=== PATIENT | male | born 1965 | race Caucasian/White ===

== ENCOUNTER → 2017-04-14 | Outpatient (CLI) | payer BC ==
[~2017-04-14] MED LIST: LISI-787 PO
[2017-04-14 10:02] LABS: BLOOD UREA NITROGEN 11 mg/dl (7-18); BUN/CREATININE RATIO 11.2 (10-20); CALCIUM 9.6 mg/dl (8.5-10.1); CARBON DIOXIDE 28 mmol/L (21-32); CHLORIDE 107 mmol/L (98-107); GLUCOSE 105 mg/dl (70-99); POTASSIUM 4.5 mmol/L (3.5-5.1); SODIUM 141 mmol/L (136-145)
[2017-04-14 10:05] LABS: CHOLESTEROL 187 mg/dl (0-200); CHOLESTEROL/HDL RATIO 5.2; HDL CHOLESTEROL 36 mg/dl; LDL CHOLESTEROL CALCULATED 111 mg/dl; TRIGLYCERIDES 199 mg/dl (0-150); VERY LOW DENSITY LIPOPROT CALC 40 mg/dl
== END | disposition home or self-care (01) ==
LOC: C.LAB 08:21
PROVIDERS: ATTEND Family Medicine
DX: Z11.59 Encounter for screening for other viral diseases (principal); I10 Essential (primary) hypertension; R73.01 Impaired fasting glucose; E78.5 Hyperlipidemia, unspecified; M25.572 Pain in left ankle and joints of left foot

== ENCOUNTER 2017-09-22 13:21 | Emergency (ER) | payer BC ==
[~2017-09-22] VITALS: Ht 175.3 cm; Wt 81.4 kg
[2017-09-22 13:39] VITALS: TEMP 36.9; Ht 175.3 cm; Wt 81.4 kg
[2017-09-22] MEDS ORDERED: FAMOTIDINE 20 MG TAB PO STA (14:05)
[2017-09-22] MEDS ORDERED: SUCRALFATE 1 GM TAB PO STA (14:05)
[2017-09-22] MEDS ORDERED: GI COCKTAIL PO STA (14:05)
--- NOTE | 2017-09-22 14:09 | EMERGENCY ROOM VISIT NOTE ---
History Report prepared by Winifred: Hudson Ochoa Under the Supervision of: Dr. Regan Velazquez M.D. First contact with patient: 13:56 Chief Complaint: BACK PAIN Stated Complaint: NOSE BLEED, BACK PAIN, LIGHTHEADEDNESS History of Present Illness The patient is a 52 year old male who presents to the Emergency Room with complaints of constant back pain starting today. The patient states that this morning he was feeling light headed and anxious this morning, and he states that he has been having intermittent blood while blowing his nose since August. He reports that yesterday he was shoveling snow, and he states that the pain is worse with moving. He is currently on lisinopril for HTN. The patient states that he has numbness and tingling in his hands at night, though he does not have this with the light headedness. Source of History: patient Onset: this morning Position: back Timing: constant Modifying Factors (Worsening): movement Associated Symptoms: + numbness Note: Associated symptoms: light headed, anxious, blood while blowing his nose Review of Systems See HPI for pertinent positives & negatives. A total of 10 systems reviewed and were otherwise negative. Past Medical & Surgical Medical Problems: (1) HTN (hypertension) Family History Diabetes mellitus Heart disease Hypertension Social History Smoking Status: Former Smoker Marital Status: Housing Status: lives with family Occupation Status: employed Current/Historical Medications Scheduled Famotidine (Pepcid), 40 MG PO HS Lisinopril (Zestril), 20 MG PO DAILY Multivitamin (Multivitamin), 1 TAB PO DAILY Allergies Coded Allergies: No Known Allergies (Unverified , 09/25/10) Physical Exam Vital Signs Date Time Temp Pulse Resp B/P (MAP) Pulse Ox O2 Delivery O2 Flow Rate FiO2 09/22/17 15:52 73 18 139/101 95 09/22/17 14:31 78 09/22/17 14:27 97 Room Air 09/22/17 14:27 97 Room Air 09/22/17 13:39 36.9 91 16 174/118 96 Room Air Physical Exam GENERAL: Patient is a healthy-appearing well-nourished male HEAD: Normocephalic atraumatic EYES: Ocular movements intact pupils equal and react to light NOSE: Friable nares on the left OROPHARYNX mucous membranes are moist no exudates present no erythema or edema present NECK: Supple no nuchal rigidity CHEST: Good equal expansion LUNGS: Clear and equal to auscultation CARDIAC: Normal S1 and S2 ABDOMEN: Soft nontender no guarding BACK: Tenderness in the left lumbar area with is reproducible on exam. EXTREMITIES: No pain upon palpation normal muscle strength in all groups no clubbing cyanosis or edema NEURO: Patient is following commands and answering questions appropriately. Alert and oriented x3 Cranial Nerves 2-12 grossly intact Medical Decision & Procedures ER Provider Diagnostic Interpretation: Radiology results as stated below per my review and radiologist interpretation: CHEST ONE VIEW PORTABLE CLINICAL HISTORY: 52 years-old Male presenting with CHEST PAIN. TECHNIQUE: Portable upright AP view of the chest was obtained. COMPARISON: Chest CT from 07/16/2013. FINDINGS: Cardiomediastinal silhouette normal. Lungs and pleural spaces clear. Osseous structures normal. Upper abdomen normal. IMPRESSION: 1. No acute cardiopulmonary disease. Electronically signed by: Kyle Lord M.D. 09/22/2017 2:20 PM Dictated Date/Time: 09/22/2017 2:20 PM Laboratory Results 09/22/17 14:35 Red Blood Count 4.81, Mean Corpuscular Volume 90.9, Mean Corpuscular Hemoglobin 33.1, Mean Corpuscular Hemoglobin Concent 36.4, Mean Platelet Volume 10.7, Neutrophils (%) (Auto) 75.3, Lymphocytes (%) (Auto) 16.6, Monocytes (%) (Auto) 7.5, Eosinophils (%) (Auto) 0.2, Basophils (%) (Auto) 0.2, Neutrophils # (Auto) 6.46, Lymphocytes # (Auto) 1.42, Monocytes # (Auto) 0.64, Eosinophils # (Auto) 0.02, Basophils # (Auto) 0.02 09/22/17 14:35 Test 09/22/17 14:35 White Blood Count 8.58 K/uL (4.8-10.8) Red Blood Count 4.81 M/uL (4.7-6.1) Hemoglobin 15.9 g/dL (14.0-18.0) Hematocrit 43.7 % (42-52) Mean Corpuscular Volume 90.9 fL (80-100) Mean Corpuscular Hemoglobin 33.1 pg (25-34) Mean Corpuscular Hemoglobin Concent 36.4 g/dl (32-36) Platelet Count 207 K/uL (130-400) Mean Platelet Volume 10.7 fL (7.4-10.4) Neutrophils (%) (Auto) 75.3 % Lymphocytes (%) (Auto) 16.6 % Monocytes (%) (Auto) 7.5 % Eosinophils (%) (Auto) 0.2 % Basophils (%) (Auto) 0.2 % Neutrophils # (Auto) 6.46 K/uL (1.4-6.5) Lymphocytes # (Auto) 1.42 K/uL (1.2-3.4) Monocytes # (Auto) 0.64 K/uL (0.11-0.59) Eosinophils # (Auto) 0.02 K/uL (0-0.5) Basophils # (Auto) 0.02 K/uL (0-0.2) RDW Standard Deviation 42.3 fL (36.4-46.3) RDW Coefficient of Variation 12.7 % (11.5-14.5) Immature Granulocyte % (Auto) 0.2 % Immature Granulocyte # (Auto) 0.02 K/uL (0.00-0.02) Anion Gap 6.0 mmol/L (3-11) Est Creatinine Clear Calc Drug Dose 79.1 ml/min Estimated GFR () 90.3 Estimated GFR (Non- 77.9 BUN/Creatinine Ratio 10.5 (10-20) Calcium Level 9.0 mg/dl (8.5-10.1) Total Bilirubin 0.5 mg/dl (0.2-1) Direct Bilirubin 0.1 mg/dl (0-0.2) Aspartate Amino Transf (AST/SGOT) 32 U/L (15-37) Alanine Aminotransferase (ALT/SGPT) 56 U/L (12-78) Alkaline Phosphatase 92 U/L (45-117) Total Creatine Kinase 241 U/L (39-308) Creatine Kinase MB 2.2 ng/ml (0.5-3.6) Creatine Kinase MB Ratio 0.9 (0-3.0) Troponin I < 0.015 ng/ml (0-0.045) Total Protein 7.7 gm/dl (6.4-8.2) Albumin 4.2 gm/dl (3.4-5.0) Lipase 255 U/L (73-393) Labs reviewed by ED physician. Medications Administered Medications (Trade) Dose Ordered Sig/Jim Route Start Time Stop Time Status Last Admin Dose Admin Miscellaneous Medication (Gi Cocktail) 24 ml NOW STAT PO 09/22/17 14:05 09/22/17 14:07 DC 09/22/17 14:05 24 ML Famotidine (Pepcid Tab) 20 mg NOW STAT PO 09/22/17 14:05 09/22/17 14:07 DC 09/22/17 14:28 20 MG Sucralfate (Carafate Tab) 1 gm NOW STAT PO 09/22/17 14:05 09/22/17 14:07 DC 09/22/17 14:28 1 GM ECG Indication: back/shoulder pain Rate (beats per minute): 70 Rhythm: normal sinus Findings: no acute ischemic change, no ectopy Change: Patient's electrocardiogram per my interpretation. ED Course 1356: Past medical records reviewed. The patient was evaluated in room B12. A complete history and physical examination was performed. 1405: Carafate 1gm PO, Pepcid Tab 20mg PO, GI Cocktail 24ml PO 1511: I reevaluated the patient, and he was doing well. 1552: Upon reexamination the patient is doing well. I discussed results and treatment plan with the patient. He verbalizes agreement and understanding. The patient is ready for discharge. Medical Decision Differential diagnosis: Etiologies such as cardiac ischemia, aortic dissection, pulmonary embolism, pneumonia, pneumothorax, musculoskeletal, infections, pericarditis, myocarditis , esophageal rupture, gastrointestinal, as well as others were entertained. This is a 52-year-old male who presents emergency Department with a number of complaints. He is complaining of low back pain in addition to having numerous episodes of passing out. The patient has for morning when he is going to pass out and describes breathing heavy with numbness and tingling to his hands. In addition he has felt very tired after eating for the past 3 days. Based on these complaints and using shared medical decision-making the patient was given a GI cocktail, Pepcid and Carafate. He is a normal EKG here in the emergency department along with normal cardiac enzymes despite this however I stressed the need for follow-up with cardiology. At this point I do feel the patient is well enough to be discharged home for follow-up with his primary care physician. Patient also has a normal chest x-ray. Medication Reconcilliation Current Medication List: was personally reviewed by me Blood Pressure Screening Patient's blood pressure: Elevated blood pressure Blood pressure disposition: Referred to PCP Impression Primary Impression: Near syncope Additional Impression: Back pain Scribe Attestation The scribe's documentation has been prepared under my direction and personally reviewed by me in its entirety. I confirm that the note above accurately reflects all work, treatment, procedures, and medical decision making performed by me. Departure Information Dispostion Home / Self-Care Prescriptions Famotidine (Pepcid) 40 Mg Tab 40 MG PO HS for 30 Days, #30 TAB Prov: Regan Velazquez MD 09/22/17 Referrals Oc George III, CRNP (PCP) Forms HOME CARE DOCUMENTATION FORM, IMPORTANT VISIT INFORMATION, School Instructions, Work Instructions Patient Instructions Back Pain - [facility], ED Exercises Lumbar Muscles, ED Low Back Pain Injury, ED Near Syncope Unkn, Hypertension Control, [facility] Additional Instructions Increase fluids next 48 hours Follow up with Dr Alex's office No strenuous activity until follow up Clear liquid diet next 48 hours Take 5 ml Maalox before every meal and at bedtime Follow up with Dr Regalado's office for continued back pain You were found to have an elevated blood pressure today (>120 sytolic or >90 diastolic). Per medicare guidelines, you need to follow up with this blood pressure screening with your Primary Care Physician (PCP). For a new PCP call [phone]. You have been examined and treated today on an emergency basis only. This is not a substitute for, or an effort to provide, complete comprehensive medical care. It is impossible to recognize and treat all injuries or illnesses in a single emergency department visit. It is therefore important that you follow up closely with Dr George. Call as soon as possible for an appointment. Thank you for your time and consideration. I look forward to speaking with you again soon. Please don't hesitate to call us if you have any questions. Problem Qualifiers Additional Impression: Back pain Back pain location: low back pain Chronicity: acute Back pain laterality: right Sciatica presence: without sciatica Qualified Codes: M54.5 - Low back pain
[2017-09-22] MEDS ORDERED: LIDOCAINE HCL 2% VISC SOLN 20 ML UDC ONE (14:19)
[2017-09-22] MEDS ORDERED: ALUMINUM/MAGNESIUM SUSP 30 ML UDC ONE (14:19)
[2017-09-22] MEDS ORDERED: LISI-725 PO (14:21)
[2017-09-22] MEDS ORDERED: MULT-506 PO (14:21)
--- NOTE | 2017-09-22 14:21 | DIAGNOSTIC IMAGING REPORT ---
CHEST ONE VIEW PORTABLE CLINICAL HISTORY: 52 years-old Male presenting with CHEST PAIN. TECHNIQUE: Portable upright AP view of the chest was obtained. COMPARISON: Chest CT from 07/16/2013. FINDINGS: Cardiomediastinal silhouette normal. Lungs and pleural spaces clear. Osseous structures normal. Upper abdomen normal. IMPRESSION: 1. No acute cardiopulmonary disease. Electronically signed by: Kyle Lord M.D. 09/22/2017 2:20 PM Dictated Date/Time: 09/22/2017 2:20 PM
[2017-09-22 14:27] VITALS: O2SAT 97
[2017-09-22 14:53] LABS: BASO % 0.2 %; BASO ABS # 0.02 K/uL (0-0.2); EOS % 0.2 %; EOS ABS # 0.02 K/uL (0-0.5); HEMATOCRIT 43.7 % (42-52); HEMOGLOBIN 15.9 g/dL (14.0-18.0); IG# 0.02 K/uL (0.00-0.02); LYMPH % 16.6 %; LYMPH ABS # 1.42 K/uL (1.2-3.4); MEAN CELL VOLUME 90.9 fL (80-100); MEAN CORPUSCULAR HEMOGLOBIN 33.1 pg (25-34); MEAN CORPUSCULAR HGB CONC 36.4 g/dl (32-36); MEAN PLATELET VOLUME 10.7 fL (7.4-10.4); MONO % 7.5 %; MONO ABS # 0.64 K/uL (0.11-0.59); NEUT % 75.3 %; NEUT ABS # 6.46 K/uL (1.4-6.5); PLATELET COUNT 207 K/uL (130-400); RED CELL DISTRIBUTION WIDTH CV 12.7 % (11.5-14.5); RED CELL DISTRIBUTION WIDTH SD 42.3 fL (36.4-46.3); WHITE BLOOD COUNT 8.58 K/uL (4.8-10.8)
[2017-09-22 15:18] LABS: ALBUMIN 4.2 gm/dl (3.4-5.0); ALT/SGPT 56 U/L (12-78); AST/SGOT 32 U/L (15-37); BLOOD UREA NITROGEN 11 mg/dl (7-18); CARBON DIOXIDE 26 mmol/L (21-32); CREATININE 1.08 mg/dl (0.60-1.40); GLUCOSE 104 mg/dl (70-99); LIPASE 255 U/L (73-393); POTASSIUM 3.9 mmol/L (3.5-5.1); SODIUM 139 mmol/L (136-145)
[2017-09-22 15:23] LABS: ALKALINE PHOSPHATASE 92 U/L (45-117); CKMB 2.2 ng/ml (0.5-3.6); TOTAL PROTEIN 7.7 gm/dl (6.4-8.2)
[2017-09-22] MEDS ORDERED: FAMO40TA6 PO (15:43)
[2017-09-22 15:52] VITALS: BP 139/101; PULSE 73; O2SAT 95
== END 2017-09-22 15:53 | disposition home or self-care (01) ==
LOC: C.EDB 13:24
DX: R55 Syncope and collapse (principal); M54.5 Low back pain; I10 Essential (primary) hypertension; Z87.891 Personal history of nicotine dependence; Z83.3 Family history of diabetes mellitus; Z82.49 Family history of ischemic heart disease and other diseases of the circulatory system

== ENCOUNTER → 2017-09-26 | Outpatient (CLI) | payer BC ==
[~2017-09-26] MED LIST changes: +FAMO40TA6 PO; +LISI-725 PO; -LISI-787 PO; +MULT-506 PO
[2017-09-26 17:00] LABS: ALBUMIN 4.2 gm/dl (3.4-5.0); ALT/SGPT 51 U/L (12-78); AST/SGOT 30 U/L (15-37); BLOOD UREA NITROGEN 11 mg/dl (7-18); CALCIUM 9.2 mg/dl (8.5-10.1); CARBON DIOXIDE 25 mmol/L (21-32); CREATININE 1.05 mg/dl (0.60-1.40); GLUCOSE 92 mg/dl (70-99); LIPASE 266 U/L (73-393); POTASSIUM 4.1 mmol/L (3.5-5.1); SODIUM 139 mmol/L (136-145)
[2017-09-26 17:11] LABS: ALKALINE PHOSPHATASE 93 U/L (45-117); CHOLESTEROL 185 mg/dl (0-200); LDL CHOLESTEROL CALCULATED 109 mg/dl; TOTAL PROTEIN 7.6 gm/dl (6.4-8.2)
[2017-09-27 06:37] LABS: HEMOGLOBIN A1C 5.5 % (4.5-5.6)
== END | disposition home or self-care (01) ==
LOC: C.LAB 15:31
PROVIDERS: ATTEND Nurse Practitioner Adult Health
DX: I10 Essential (primary) hypertension (principal); E78.5 Hyperlipidemia, unspecified; R10.13 Epigastric pain; R42 Dizziness and giddiness

== ENCOUNTER → 2017-10-04 | Outpatient (CLI) | payer BC ==
--- NOTE | 2017-10-04 08:52 | DIAGNOSTIC IMAGING REPORT ---
ABDOMINAL ULTRASOUND, RIGHT UPPER QUADRANT HISTORY: Dyspepsia. Right-sided abdominal pain. COMPARISON: None. FINDINGS: Increased hepatic echogenicity is consistent with fatty infiltration. Hypoechoic foci within the gallbladder fossa reflect fatty sparing. There is no biliary ductal dilatation. The common bile duct measures 4 mm in caliber. The gallbladder is normal. There are no gallstones. Pancreas is unremarkable although the tail is partially obscured. There is no right hydronephrosis. IMPRESSION: 1. No gallstones or biliary ductal dilatation. 2. Fatty infiltration of the liver. 3. Partially obscured pancreas. Electronically signed by: Leonard Casanova M.D. 10/04/2017 8:50 AM Dictated Date/Time: 10/04/2017 8:49 AM
== END | disposition home or self-care (01) ==
LOC: C.ULTR 07:37
PROVIDERS: ATTEND Nurse Practitioner Adult Health
DX: K76.0 Fatty (change of) liver, not elsewhere classified (principal); M54.9 Dorsalgia, unspecified; R10.13 Epigastric pain